=== PATIENT | female | born 1960 | race African-American/Black ===

== ENCOUNTER 2016-11-16 12:26 | Observation (INO) ==
[2016-11-16] MEDS ORDERED: ENOXAPARIN 100 MG/ML SYRINGE SUBCUT STA (12:42)
[2016-11-16] MEDS ORDERED: NITROGLYCERIN SL 0.4 MG TABLET SL PRN (12:42)
[2016-11-16] MEDS ORDERED: ALUM/MAG/SIMETH/LIDO VISC 1:1 30 ML BOTTLE PO STA (12:42)
[2016-11-16] MEDS ORDERED: ASPIRIN 325 MG TABLET PO STA (12:42)
[2016-11-16] MEDS ORDERED: ONDANSETRON 4 MG/2 ML VIAL IV PRN (12:42)
[2016-11-16] MEDS ORDERED: MORPHINE 2 MG/1 ML SYRINGE IV PRN ×2 (12:42→15:46)
[2016-11-16] MEDS ORDERED: NITROGLYCERIN 2% OINT 1 INCH/GM PACK TOP STA (12:42)
--- NOTE | 2016-11-16 12:45 | EKG Report ---
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
[2016-11-16] MEDS ORDERED: NITROGLYCERIN 2% OINT 1 INCH/GM PACK TOP ONE (12:48)
[2016-11-16] MEDS ORDERED: ENOXAPARIN 120 MG/0.8 ML SYRINGE SUBCUT ONE (12:48)
[2016-11-16] MEDS ORDERED: ALUM/MAG/SIMETH/LIDO VISC 1:1 30 ML BOTTLE PO ONE (12:49)
[2016-11-16] MEDS ORDERED: ASPIRIN 325 MG TABLET ONE (12:49)
--- NOTE | 2016-11-16 12:54 | Emergency Department Note ---
Montse Lemus Emily, am scribing for, and in the presence of, Doe Jhaveri MD 12:45. Shakila Lemus James D, MD, personally performed the services described in this documentation, ascribed by Ruma Willard in my presence, and it is both accurate and complete . Arrival - Arrival Chief Complaint: Weakness Stated Complaint: chest pain yesterday,feeling off today ED Nursing Triage Note: Pt c/o weakness x 1 wk (states feeling tired and sleeping alot) and CP yesterday, cough, neck/back tightness. Mode of Arrival: Ambulatory Limitations: No Limitations Source: Patient - History of Present Illness HPI Narrative: Pt is a 56 y/o female who came to ED with c/o generalized weakness that has been ongoing of a week. Pt reports having chest pain that started yesterday on right side and went across but resolved on its own, along with diaphoresis all day and mild nausea, but denies hematemesis or melena. Pt reports being extremely tired and not being able to walk long distances, but denies chest pain , sweating, nausea at this time. PMhx of HTN. PCP is Dr. Ballard. FMHx of mom having stent and father's side had heart issues. Onset (ago): week(s) Consistency: constant, now resolved Severity: mild, moderate Severity scale (1-10): 4 Quality: aching Allergies/Adverse Reactions: Allergies Allergy/AdvReac Type Severity Reaction Status Date / Time Sulfa (Sulfonamide Allergy Unknown/Unable Verified 06/07/16 20:18 Antibiotics) to obtain Home Medications: Home Medications Medication Instructions Recorded Confirmed Type Albuterol Inhaler [Proventil 2 puffs INH Q4H PRN 11/16/16 History Inhaler] Carvedilol [Carvedilol] 12.5 mg PO BID 11/16/16 History Review of System - Review of System 12 point system: reviewed and no additional remarkable complaints except as stated - Review of System Constitutional: Present: diaphoresis (now resolved), weakness. Absent: fever Respiratory: Absent: respiratory distress Cardiovascular: Present: chest pain (now resolved). Absent: dyspnea on exertion , syncope Gastrointestinal: Present: nausea (mild). Absent: abdominal pain, vomiting, hematemesis, melena Musculoskeletal: Absent: arm pain, neck pain Skin: Absent: rash Neurological: Absent: headache Medical,Surgical,& Family Hx - Medical History Cardio: History of: Hypertension Neurology: History of: Migraine Rheumatology: History of;: Fibromyalgia Musculoskeletal: History of: Musculoskeletal Problems (arthritis) - Surgical History Surgical History: noncontributory - Family History Family History: Reports;: Family Heart Disease (mom with stent and father's side with heart issues) - Social History Smoking Status: Never smoker Marital Status: Single Lives With:: Alone Functional capacity: independent ambulation Exam Vital Signs: Vital Signs Temperature 96.5 F L 11/16/16 12:34 Pulse Rate 73 11/16/16 12:34 Respiratory Rate 18 11/16/16 13:07 Blood Pressure 132/79 11/16/16 12:34 O2 Sat by Pulse Oximetry 98 11/16/16 12:29 GENERAL: This is a well-nourished well-developed black female, obese in no apparent distress. VITAL SIGNS: Reviewed HEENT: Head is atraumatic and normocephalic. Pupils are equal round react to light. Extraocular movements are intact. Oropharynx is benign with moist mucous membranes. NECK: Neck is soft and supple without tenderness. There are no masses. There is no lymphadenopathy. LUNGS: Lungs are clear to auscultation. Chest rises symmetrically. There is no chest wall tenderness. CV: Heart is regular rate and rhythm without murmurs rubs or gallops. ABDOMEN: Abdomen is soft, nontender to palpation. There are no abdominal abnormal masses palpated. There is no organomegaly. Bowel sounds are present and active. SKIN: Skin is warm and dry. No rash. EXTREMITIES: Patient has full range of motion without tenderness. There is no pedal edema. NEUROLOGIC: Awake alert and oriented 4. Cranial nerves II through XII are grossly intact. Motor is 5 over 5 in all extremities bilaterally. Course - Consultations Consultation #1: Discussed with hospitalist. Patient will be admitted to their service. Time: 14:14 Results - Labs CBC & BMP: 11/16/16 12:46 11/16/16 12:46 Lab Results: I have reviewed the patients labs Labs: Laboratory Tests 11/16/16 11/16/16 11/16/16 12:46 12:46 12:46 WBC 7.2 RBC 3.94 Hgb 11.9 L Hct 35.1 L Plt Count 275 Neut % (Auto) 36.9 L Baso % (Auto) 1.0 H Segmented Neutrophils 27 L Lymphocytes 67 H Atypical Lymphocytes Few Platelet Estimate Adequate Giant Platelets Few Immature Plt Fraction 0.0 Hypochromasia 1+ INR 1.0 PT Patient/Control Mix 10.0 Circ Anticoag PTT 25.0 Sodium 141 Potassium 4.1 Chloride 106 Carbon Dioxide 29 Magnesium 2.5 H Alkaline Phosphatase 119 H Albumin 3.3 L Globulin 3.9 H Albumin/Globulin Ratio 0.8 L Lipase 201.0 Laboratory Tests 11/16/16 12:46 Troponin I < 0.015 Laboratory Tests 11/16/16 13:35 Urine Color Yellow Urine Appearance Clear Urine pH 6.0 Ur Specific Amelia 1.010 Urine Blood Negative Urine Nitrate Negative Urine Urobilinogen 0.2 Urine RBC <1 Urine WBC 1 Ur Squamous Epith Cells Occasional Urine Bacteria Few - EKG EKG results: interpreted by JANET, sinus rhythm (76) - Impressions EKG: Normal sinus rhythm with a rate of 75, low voltage QRS, nonspecific ST-T wave changes, normal axis. - Diagnostic Findings Procedure: Chest x-ray: image reviewed by me (No infiltrates, no pleural effusions, no cardiomegaly.) Disposition Clinical Impression: Chest pain Case discussed with: patient Disposition: Still a Patient Condition: Stable Time of Disposition: 14:06
[2016-11-16 13:00] LABS: Basophils # 0.1 10*3/uL (0.0-0.2); Eosinophils # 0.2 10*3/uL (0.0-0.87); Eosinophils % 2.3 % (0.00-10.9); Hematocrit 35.1 VOL% (35.7-47.0); Hemoglobin 11.9 GM/DL (12.0-16.0); Immature Granulocytes % 0.1 %; Immature Granulocytes Absolute 0.01 #; Lymphocytes # 3.7 10*3/uL (1.4-4.0); Lymphocytes % 51.7 % (21.3-54.2); Mean Corpuscular HGB Conc 33.9 GM/DL (32-36); Mean Corpuscular Hemoglobin 30 PG (27-34); Mean Corpuscular Volume 89.1 FL (87-102); Mean Platelet Volume 9.8 FL (9.6-12.0); Monocytes # 0.6 10*3/uL (0.11-0.8); Neutrophils # 2.7 10*3/uL (1.4-7.4); Neutrophils % 36.9 % (38.7-73.9); Platelet Count 275 T/CUMM (130-400); Red Blood Count 3.94 MC/CUMM (3.8-5.5); Red Cell Distribution Width 12.8 % (9.3-17.3); White Blood Count 7.2 T/CUMM (4-12)
[2016-11-16 13:23] LABS: Albumin 3.3 G/DL (3.4-5.0); Atypical Lymphocytes Few; Bilirubin,Total 0.5 MG/DL (0.2-1.0); Calcium 9.2 MG/DL (8.5-10.1); Eosinophils 2 % (0-10); Giant Platelets Few; Hypochromasia 1+; Lymphocytes 67 % (20-55); Magnesium 2.5 MG/DL (1.8-2.4); Osmolality,Calculated 278.3 MOS/KG (273-304); Platelet Estimate Adequate; Potassium 4.1 MMOL/L (3.5-5.1); Segmented Neutrophils 27 % (50-85); Total Cells Counted 100; Total Protein 7.2 G/DL (6.4-8.3)
[2016-11-16 13:50] LABS: Bacteria,Urine Few /HPF (Few); Bilirubin,Urine Negative (Negative); Blood, Urine NEGATIVE (Negative); Glucose,Urine (UA) Negative (Negative); Ketones,Urine Negative (Negative); Nitrite,Urine Negative (Negative); Protein,Urine Negative; RBC,Urine <1 /HPF (0-4); Squamous Epithelial Cell,Urine Occasional /HPF (0-10); Urine Color Yellow (Yellow); WBC,Urine 1 /HPF (0-6)
[2016-11-16 13:51] LABS: Apearance,Urine Clear (Clear); Urine Urobilinogen 0.2 EU/DL (0.2-1.0)
[2016-11-16 14:01] LABS: Barbiturates Screen,Urine Negative (Negative); Benzodiazepines Screen,Urine Negative (Negative); Cannabinoid Screen,Urine Negative (Negative); Opiate Screen,Urine Negative (Negative); Phencyclidine Screen,Urine Negative (Negative)
--- NOTE | 2016-11-16 14:01 | XRay Report ---
XR chest 2V Date: 11/16/2016 12:42 PM History: Chest pain Comparison: 03/26/2014 Technique: PA and lateral chest Findings: The heart is normal in size. The lungs are clear. Unremarkable mediastinum and osseous structures. Impression: No acute cardiopulmonary pathology identified. PROCEDURE INTERPRETED AT [facility] DEPARTMENT OF RADIOLOGY Final Report Signed by: Dr. Moriah Cheung
--- NOTE | 2016-11-16 15:42 | Hospitalist History & Physical ---
<Gt Oro - Last Filed: 11/16/16 15:26> Assessment and Plan - Time spent with patient Time spent with patient: Greater than 30 minutes (1) Chest pain Status: Acute Assessment and plan: 56-year-old -Sammarinese female with risk factors significant for: Hypertension, obesity and family history. One day history of episodic chest pain. Six-month history of progressive fatigue that interferes with ADLs. Admit patient for observation. Echocardiogram. Trend cardiac enzymes. Trend EKG. Current Visit: Yes (2) Hypertension Status: Acute Assessment and plan: Continue home medication. Current Visit: Yes History of Present Illness Chief complaint: chest pain, fatigue History of present illness: Ms. Christensen is a 56 year old female with risk factors significant for: hypertension, obesity, and family history who presents to the ED today with complaints of right-sided chest pain having onset yesterday and progressive fatigue for the past 6 months. The patients notes that she was awakened from her sleep on yesterday morning with a sharp nonradiating chest pain that subsided after a few minutes and recurred once more throughout the day. She tells me that the pain has completely resolved now. On exam, she casually mentioned the chest pain and noted that she had a strong family history of coronary artery disease requiring stent placement. Her dominant complaint today is ongoing fatigue which she reports is starting to interfere with her day-to-day activities. She is enrolled in college courses but feels "too tired to function some days". She further reports intermittent LE edema. She denies headache, blurry vision, chest pain, palpitations, syncope, nausea/ vomiting/diarrhea, hematuria, hematochezia, or melena. CXR on admission show no acute cardiopulmonary pathology identified. EKG shows a normal sinus rhythm. Lab work shows: WBC 7.2, hemoglobin 11.9, hematocrit 35.1 , sodium 141, potassium 4.1, BUN 8, creatinine 1.0, magnesium 2.5, calcium 9.2, troponin I <0.015. This case has been discussed with Dr. Jhaveri, ER physician, and Dr. Barraza, admitting physician, and the patient will be admitted to the hospital medicine program for further evaluation and treatment. CODE STATUS has been discussed with patient; she makes her own medical decisions and is a FULL CODE. Home medications have been reviewed and reconciled. Home Medications Medication Instructions Recorded Confirmed Type Albuterol Inhaler [Proventil 2 puffs INH Q4H PRN 11/16/16 11/16/16 History Inhaler] Carvedilol 12.5 mg PO BID 11/16/16 11/16/16 History Allergies Allergy/AdvReac Type Severity Reaction Status Date / Time Sulfa (Sulfonamide Allergy Unknown/Unable Verified 06/07/16 20:18 Antibiotics) to obtain Medical,Surgical,& Family Hx - Medical History Cardio: History of: Hypertension Neurology: History of: Migraine Rheumatology: History of;: Fibromyalgia Musculoskeletal: History of: Musculoskeletal Problems (arthritis) - Family History Family History: Reports;: Family Heart Disease (mom with stent and father's side with heart issues) - Social History Smoking Status: Never smoker Frequency of Alcohol Use: Occasionally Type of Drug Use: None Marital Status: Single Lives With:: Alone Functional capacity: independent ambulation 12 point system: reviewed and no additional remarkable complaints except as stated Exam - Constitutional Vitals: Period Temp Pulse Resp BP Sys/Avila Pulse Ox Last 24 Hr 96.5 F-98.3 F 73-80 18-20 130-132/69-79 98-98 Exam: General appearance: obese, no acute distress - Head Head exam: Present: normocephalic, atraumatic - Eye Eye exam: Present: EOMI. Absent: conjunctival injection, nystagmus Pupils: Present: MADDY, normal accommodation - ENT ENT exam: Present: normal exam, normal external ear exam - Neck Neck exam: Present: normal inspection. Absent: lymphadenopathy, tenderness, thyromegaly - Respiratory Respiratory exam: Present: clear to auscultation bilaterally. Absent: rales, rhonchi, wheezes - Cardiovascular Cardiovascular exam: Present: regular rate and rhythm. Absent: carotid bruit, gallop, rubs - GI/Abdominal GI/Abdominal exam: Present: normal bowel sounds. Absent: ascites, distended, mass - Extremities Exam Extremities exam: Present: normal inspection, normal capillary refill, trace edema in LE bilaterally - Back Exam Back exam: Absent: CVA tenderness (L), CVA tenderness (R) - Neurological Exam Neurological exam: Present: alert, oriented X3, CN II-XII intact, reflexes normal - Psychiatric Psychiatric exam: Present: normal affect, normal mood - Skin Skin exam: Present: normal color, warm, dry Results - Labs CBC & BMP: 11/16/16 12:46 11/16/16 12:46 Lab Results: I have reviewed the past 24 hour labs <Carlos Barraza - Last Filed: 11/16/16 17:38> History of Present Illness History of present illness: I have personally seen and examined this patient today. I agree with the below note as prepared by the advanced practice provider. I agree with the assessment and plan. The patient gives a history of significant snoring and daytime fatigue. I believe she has obstructive sleep apnea given her body habitus and list of symptoms. Will consult sleep medicine for evaluation. Also check TSH and repeat cardiac enzymes. At this time her cardiac enzymes have been negative and her EKG is unremarkable. I do not believe she has an acute coronary syndrome. Will check echocardiogram given her fluid retention and leg swelling. Also consider a bilateral lower extremity DVT study although she does not have any significant pain, redness, or erythema to suggest DVT. 12 point system: reviewed and no additional remarkable complaints except as stated Exam - Constitutional Vitals: Period Temp Pulse Resp BP Sys/Avila Pulse Ox Last 24 Hr 96.5 F-98.3 F 73-80 18-20 130-132/69-79 98-98 Results - Labs CBC & BMP: 11/16/16 12:46 11/16/16 12:46 Lab Results: I have reviewed the past 24 hour labs
[2016-11-16] MEDS ORDERED: ACETAMINOPHEN 325 MG TABLET PO PRN (15:46)
--- NOTE | 2016-11-16 15:53 | EKG Report ---
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
[2016-11-16] MEDS: ASPIRIN EC 81 MG TABLET PO SCH (15:58)
--- NOTE | 2016-11-16 17:36 | ECHO Report ---
Taniya Christensen Exam Date: 11/16/2016 15:52 Referring Physician: Technologist: Yadira Viera PETE Age: 56 Ht (in): 65 Wt (lb): 240 Gender: F Exam Location: [facility] Echo Indications: Chest pain, unspecified, Other fatigue, Weakness, Essential (primary) hypertension BP: 132 / 79 HR: 71 Rhythm: Sinus Technical Quality: IMPRESSIONS Left ventricular ejection fraction is estimated at 60 %. Mild concentric left ventricular hypertrophy with mild diastolic dysfunction. Mild bilateral atrial enlargement. Trace mitral valve regurgitation. Trace to mild tricuspid valve regurgitation. MEASUREMENTS (Male / Female) Normal Values 2D ECHO LV Diastolic Diameter PLAX 5.1 cm 4.2 - 5.9 / 3.9 - 5.3 cm LV Systolic Diameter PLAX 2.9 cm LV Fractional Shortening PLAX 41.7 % IVS Diastolic Thickness 0.9 cm 0.6 - 1.0 / 0.6 - 0.9 cm LVPW Diastolic Thickness 0.9 cm 0.6 - 1.0 / 0.6 - 0.9 cm RV Internal Dim ED PLAX 2.8 cm Aortic Root Diameter 2.9 cm LA Systolic Diameter LX 4.1 cm 3.0 - 4.0 / 2.7 - 3.8 cm DOPPLER TR Peak Velocity 281.0 cm/s TR Peak Gradient 31.6 mmHg FINDINGS Left Ventricle Normal left ventricular cavity size. Mild concentric left ventricular hypertrophy with mild diastolic dysfunction. Left ventricular ejection fraction is estimated at 60 %. Right Ventricle The right ventricle is normal in size and function. Right Atrium The right atrium is mildly enlarged. Left Atrium The left atrium is mildly enlarged. Mitral Valve Morphologically normal mitral valve. Trace mitral valve regurgitation. Aortic Valve Morphologically normal aortic valve without significant sclerosis or stenosis. There is no aortic regurgitation. Tricuspid Valve Morphologically normal tricuspid valve. Trace to mild tricuspid valve regurgitation. Tricuspid regurgitation velocities suggest a PAP of 42 mmHg. Pulmonic Valve Morphologically normal pulmonic valve. Trace pulmonary valve regurgitation. Pericardium Normal pericardium without effusion. Aorta Normal ascending aorta dimension. Aidan Cabezas (Electronically Signed) Final Date: 16 November 2016 17:34
[2016-11-16] MEDS: CARVEDILOL 12.5 MG TABLET PO SCH (20:56)
[2016-11-17 07:02] LABS: Basophils # 0.1 10*3/uL (0.0-0.2); Basophils % 1.1 % (0.0-0.8); Eosinophils # 0.2 10*3/uL (0.0-0.87); Eosinophils % 2.9 % (0.00-10.9); Hematocrit 33.9 VOL% (35.7-47.0); Hemoglobin 11.6 GM/DL (12.0-16.0); Immature Granulocytes % 0.3 %; Immature Granulocytes Absolute 0.02 #; Lymphocytes # 3.9 10*3/uL (1.4-4.0); Lymphocytes % 60.2 % (21.3-54.2); Mean Corpuscular HGB Conc 34.2 GM/DL (32-36); Mean Corpuscular Hemoglobin 30 PG (27-34); Mean Corpuscular Volume 87.4 FL (87-102); Mean Platelet Volume 9.7 FL (9.6-12.0); Monocytes # 0.5 10*3/uL (0.11-0.8); Monocytes % 7.5 % (1.7-12.7); Neutrophils # 1.8 10*3/uL (1.4-7.4); Platelet Count 252 T/CUMM (130-400); Red Blood Count 3.88 MC/CUMM (3.8-5.5); Red Cell Distribution Width 12.8 % (9.3-17.3); White Blood Count 6.6 T/CUMM (4-12)
[2016-11-17 07:33] LABS: Calcium 8.9 MG/DL (8.5-10.1); Magnesium 2.4 MG/DL (1.8-2.4); Potassium 3.9 MMOL/L (3.5-5.1)
[2016-11-17 07:41] LABS: Eosinophils 4 % (0-10); Giant Platelets Few; Hypochromasia 1+; Lymphocytes 54 % (20-55); Platelet Estimate Adequate; Segmented Neutrophils 35 % (50-85); Total Cells Counted 100
[2016-11-17 07:45] LABS: Free T4 (Free Thyroxine) 1.22 NG/DL (0.76-1.46); Risk Ratio 3.19; Thyroid Stimulating Hormone 2.42 uIU/ml (0.358-3.74); VLDL CHOLESTEROL 24.8 MG/DL
[2016-11-17 07:52] VITALS: BP 107/80
[2016-11-17] MEDS: ASPIRIN EC 81 MG TABLET PO SCH (08:04)
[2016-11-17] MEDS: CARVEDILOL 12.5 MG TABLET PO SCH (08:04)
--- NOTE | 2016-11-17 08:32 | Discharge Summary ---
Hospital Course - Hospital Course Hospital Course: 56-year-old female admitted to the hospital with an episode of chest pain and some shortness of breath. She reports some lower extremity edema for which she takes Lasix as needed. She is only treated for hypertension with Coreg. She is admitted to the hospital service for further evaluation and treatment. She underwent an echocardiogram which showed an ejection fraction of 60% with diastolic dysfunction. Her TSH was normal. Her lipid panel was unremarkable. She has signs and symptoms of obstructive sleep apnea with morbid obesity, increased neck size and snoring. She also has fatigue and daytime sleepiness. She has been recommended for a sleep study and formal sleep center evaluation. Her home medications were reviewed and reconciled. Coreg was continued. The patient is being discharged home in stable condition to continue her home medications without change and follow up with her primary care physician and sleep center for a sleep study. - Time spent with patient Time with patient DS: Less than 30 minutes Diagnosis - Discharge Diagnosis (1) Morbid obesity Status: Chronic (2) Chest pain Status: Resolved (3) Hypertension Status: Chronic Discharge Plan - Discharge Data Disposition: Disch To Home/Self Care Condition at Discharge: Stable Discharge Diet: advance to your usual diet Activity: resume usual activities as tolerated Hygiene: no restrictions Weight Bearing at Discharge: full weight bearing Driving: no restrictions Contact your physician if you experience:: Shortness of breath, pain uncontrolled by pain medications - Discharge Medications Continue Albuterol Inhaler [Proventil Inhaler] 2 puffs INH Q4H PRN PRN Reason: Shortness Of Breath/Wheezing Carvedilol 12.5 mg PO BID - Follow Up or Referral - Forms/Instructions Additional Discharge Instructions: Follow-up with sleep center for sleep study Exam - Constitutional Vitals: Period Temp Pulse Resp BP Sys/[place] Pulse Ox Last 24 Hr 96.5 F-98.3 F 60-80 18-20 107-136/67-80 94-98 Discharge Results Labs on day of discharge: Labs from last 24 hours 11/17/16 11/17/16 11/17/16 06:48 06:48 06:48 WBC 6.6 RBC 3.88 Hgb 11.6 L Hct 33.9 L MCV 87.4 MCH 30 MCHC 34.2 RDW 12.8 Plt Count 252 MPV 9.7 Neut % (Auto) 28.0 L Lymph % (Auto) 60.2 H [place] % (Auto) 7.5 Eos % (Auto) 2.9 Baso % (Auto) 1.1 H Neut # (Auto) 1.8 Lymph # (Auto) 3.9 [place] # (Auto) 0.5 Eos # (Auto) 0.2 Baso # (Auto) 0.1 Total Counted 100 Immature Gran % 0.3 Nucleated RBC % 0.0 Immature Gran # 0.02 Segmented Neutrophils 35 L Lymphocytes 54 Monocytes 7 Eosinophils 4 Nucleated RBCs # 0.00 Atypical Lymphocytes Platelet Estimate Adequate Giant Platelets Few Immature Plt Fraction 0.0 Hypochromasia 1+ INR PT Patient/Control Mix Circ Anticoag PTT Sodium 143 Potassium 3.9 Chloride 108 H Carbon Dioxide 28 Anion Gap 10.9 BUN 9 Creatinine 0.80 GFR Calculation 117 BUN/Creatinine Ratio 11.00 Glucose 93 Calculated Osmolality 283.0 Calcium 8.9 Magnesium 2.4 Total Bilirubin AST ALT Alkaline Phosphatase Troponin I Total Protein Albumin Globulin Albumin/Globulin Ratio Triglycerides 124 Cholesterol 182 LDL Cholesterol 107.0 VLDL Cholesterol 24.8 HDL Cholesterol 57 Heart Disease Risk Ratio 3.19 Lipase Free T4 1.22 TSH 3rd Generation 2.420 Urine Color Urine Appearance Urine pH Ur Specific [place] Urine Protein Urine Glucose (UA) Urine Ketones Urine Blood Urine Nitrate Urine Bilirubin Urine Urobilinogen Urine Leukocytes Urine RBC Urine WBC Ur Squamous Epith Cells Urine Bacteria Ur Culture Indicated? Urine Opiates Screen Ur Barbiturates Screen Ur Phencyclidine Scrn U Amphetamine/Methamph U Benzodiazepines Scrn U Cocaine Metab Screen U Cannabinoids Screen 11/16/16 11/16/16 11/16/16 18:35 16:03 13:35 WBC RBC Hgb Hct MCV MCH MCHC RDW Plt Count MPV Neut % (Auto) Lymph % (Auto) [place] % (Auto) Eos % (Auto) Baso % (Auto) Neut # (Auto) Lymph # (Auto) [place] # (Auto) Eos # (Auto) Baso # (Auto) Total Counted Immature Gran % Nucleated RBC % Immature Gran # Segmented Neutrophils Lymphocytes Monocytes Eosinophils Nucleated RBCs # Atypical Lymphocytes Platelet Estimate Giant Platelets Immature Plt Fraction Hypochromasia INR PT Patient/Control Mix Circ Anticoag PTT Sodium Potassium Chloride Carbon Dioxide Anion Gap BUN Creatinine GFR Calculation BUN/Creatinine Ratio Glucose Calculated Osmolality Calcium Magnesium Total Bilirubin AST ALT Alkaline Phosphatase Troponin I < 0.015 < 0.015 Total Protein Albumin Globulin Albumin/Globulin Ratio Triglycerides Cholesterol LDL Cholesterol VLDL Cholesterol HDL Cholesterol Heart Disease Risk Ratio Lipase Free T4 TSH 3rd Generation Urine Color Urine Appearance Urine pH Ur Specific [place] Urine Protein Urine Glucose (UA) Urine Ketones Urine Blood Urine Nitrate Urine Bilirubin Urine Urobilinogen Urine Leukocytes Urine RBC Urine WBC Ur Squamous Epith Cells Urine Bacteria Ur Culture Indicated? Urine Opiates Screen Negative Ur Barbiturates Screen Negative Ur Phencyclidine Scrn Negative U Amphetamine/Methamph Negative U Benzodiazepines Scrn Negative U Cocaine Metab Screen Negative U Cannabinoids Screen Negative 11/16/16 11/16/16 11/16/16 13:35 12:46 12:46 WBC RBC Hgb Hct MCV MCH MCHC RDW Plt Count MPV Neut % (Auto) Lymph % (Auto) [place] % (Auto) Eos % (Auto) Baso % (Auto) Neut # (Auto) Lymph # (Auto) [place] # (Auto) Eos # (Auto) Baso # (Auto) Total Counted Immature Gran % Nucleated RBC % Immature Gran # Segmented Neutrophils Lymphocytes Monocytes Eosinophils Nucleated RBCs # Atypical Lymphocytes Platelet Estimate Giant Platelets Immature Plt Fraction Hypochromasia INR PT Patient/Control Mix Circ Anticoag PTT Sodium Potassium Chloride Carbon Dioxide Anion Gap BUN Creatinine GFR Calculation BUN/Creatinine Ratio Glucose Calculated Osmolality Calcium Magnesium Total Bilirubin AST ALT Alkaline Phosphatase Troponin I Total Protein Albumin Globulin Albumin/Globulin Ratio Triglycerides Cholesterol LDL Cholesterol VLDL Cholesterol HDL Cholesterol Heart Disease Risk Ratio Lipase Free T4 1.05 TSH 3rd Generation 2.060 Urine Color Yellow Urine Appearance Clear Urine pH 6.0 Ur Specific [place] 1.010 Urine Protein Negative Urine Glucose (UA) Negative Urine Ketones Negative Urine Blood Negative Urine Nitrate Negative Urine Bilirubin Negative Urine Urobilinogen 0.2 Urine Leukocytes Negative Urine RBC <1 Urine WBC 1 Ur Squamous Epith Cells Occasional Urine Bacteria Few Ur Culture Indicated? Not indicated Urine Opiates Screen Ur Barbiturates Screen Ur Phencyclidine Scrn U Amphetamine/Methamph U Benzodiazepines Scrn U Cocaine Metab Screen U Cannabinoids Screen 11/16/16 11/16/16 11/16/16 12:46 12:46 12:46 WBC 7.2 RBC 3.94 Hgb 11.9 L Hct 35.1 L MCV 89.1 MCH 30 MCHC 33.9 RDW 12.8 Plt Count 275 MPV 9.8 Neut % (Auto) 36.9 L Lymph % (Auto) 51.7 [place] % (Auto) 8.0 Eos % (Auto) 2.3 Baso % (Auto) 1.0 H Neut # (Auto) 2.7 Lymph # (Auto) 3.7 [place] # (Auto) 0.6 Eos # (Auto) 0.2 Baso # (Auto) 0.1 Total Counted 100 Immature Gran % 0.1 Nucleated RBC % 0.0 Immature Gran # 0.01 Segmented Neutrophils 27 L Lymphocytes 67 H Monocytes 4 Eosinophils 2 Nucleated RBCs # 0.00 Atypical Lymphocytes Few Platelet Estimate Adequate Giant Platelets Few Immature Plt Fraction 0.0 Hypochromasia 1+ INR PT Patient/Control Mix Circ Anticoag PTT Sodium 141 Potassium 4.1 Chloride 106 Carbon Dioxide 29 Anion Gap 10.1 BUN 8 Creatinine 1.00 GFR Calculation 89 BUN/Creatinine Ratio 8.00 Glucose 95 Calculated Osmolality 278.3 Calcium 9.2 Magnesium 2.5 H Total Bilirubin 0.50 AST 25 ALT 35 Alkaline Phosphatase 119 H Troponin I < 0.015 Total Protein 7.2 Albumin 3.3 L Globulin 3.9 H Albumin/Globulin Ratio 0.8 L Triglycerides Cholesterol LDL Cholesterol VLDL Cholesterol HDL Cholesterol Heart Disease Risk Ratio Lipase 201.0 Free T4 TSH 3rd Generation Urine Color Urine Appearance Urine pH Ur Specific [place] Urine Protein Urine Glucose (UA) Urine Ketones Urine Blood Urine Nitrate Urine Bilirubin Urine Urobilinogen Urine Leukocytes Urine RBC Urine WBC Ur Squamous Epith Cells Urine Bacteria Ur Culture Indicated? Urine Opiates Screen Ur Barbiturates Screen Ur Phencyclidine Scrn U Amphetamine/Methamph U Benzodiazepines Scrn U Cocaine Metab Screen U Cannabinoids Screen 11/16/16 12:46 WBC RBC Hgb Hct MCV MCH MCHC RDW Plt Count MPV Neut % (Auto) Lymph % (Auto) [place] % (Auto) Eos % (Auto) Baso % (Auto) Neut # (Auto) Lymph # (Auto) [place] # (Auto) Eos # (Auto) Baso # (Auto) Total Counted Immature Gran % Nucleated RBC % Immature Gran # Segmented Neutrophils Lymphocytes Monocytes Eosinophils Nucleated RBCs # Atypical Lymphocytes Platelet Estimate Giant Platelets Immature Plt Fraction Hypochromasia INR 1.0 PT Patient/Control Mix 10.0 Circ Anticoag PTT 25.0 Sodium Potassium Chloride Carbon Dioxide Anion Gap BUN Creatinine GFR Calculation BUN/Creatinine Ratio Glucose Calculated Osmolality Calcium Magnesium Total Bilirubin AST ALT Alkaline Phosphatase Troponin I Total Protein Albumin Globulin Albumin/Globulin Ratio Triglycerides Cholesterol LDL Cholesterol VLDL Cholesterol HDL Cholesterol Heart Disease Risk Ratio Lipase Free T4 TSH 3rd Generation Urine Color Urine Appearance Urine pH Ur Specific [place] Urine Protein Urine Glucose (UA) Urine Ketones Urine Blood Urine Nitrate Urine Bilirubin Urine Urobilinogen Urine Leukocytes Urine RBC Urine WBC Ur Squamous Epith Cells Urine Bacteria Ur Culture Indicated? Urine Opiates Screen Ur Barbiturates Screen Ur Phencyclidine Scrn U Amphetamine/Methamph U Benzodiazepines Scrn U Cocaine Metab Screen U Cannabinoids Screen DS: Provider Date of admission: 11/16/16 14:10 Primary care physician: . No PCP Attending physician on admission: Carlos Barraza MD Consults: 11/16/16 17:41 Consult to Sleep Center [CONS] Routine Reason for Sleep Center: Sleep Center Physician Consult Comment: JOAQUIN eval Discharging clinician: aCrlos Barraza MD Expected date of discharge: 11/17/16
[2016-11-17] MEDS ORDERED: PANTOPRAZOLE 40 MG TABLET PO SCH (09:00)
== END 2016-11-17 09:45 | disposition home or self-care (01) ==
LOC: N.ED 12:26 → N.EDINP 12:26 → N.5E 14:59
PROVIDERS: ADMIT Family Medicine; ATTEND Family Medicine